=== PATIENT | female | born 1945 | race Caucasian/White ===

== ENCOUNTER 2019-09-30 08:00 | Outpatient (RCR) | payer MEDICARE, OTHER ==
[~2019-09-30 08:00] MED LIST: CO Q-10 PO; COCONUT OIL PO; CRESTOR10 MG PO; D3 PO; FLAX SEED OIL1000 MG PO; GLUCOSAMINE CH1 EAC2 PO; LEVOTHYROXINE PO; LOSARTAN/HCT PO; MAGNESIUM PO; METFORMIN HCL500 MG PO; OMEGA FISH OIL PO; OMEPRAZOLE40 MG PO; POTASSIUM GLUC PO; VITAMIN B-12 PO; VITAMIN E PO
== END 2019-10-01 ==
LOC: PT 08:00
PROVIDERS: ATTEND Specialist
DX: M75.41 Impingement syndrome of right shoulder (principal)

== ENCOUNTER 2019-12-19 07:58 | Outpatient (RCR) | payer MEDICARE | END 2019-12-31 | LOC: PT 07:58 | PROVIDERS: ATTEND Specialist | DX: M75.41 Impingement syndrome of right shoulder (principal); M62.81 Muscle weakness (generalized); M25.511 Pain in right shoulder; M54.2 Cervicalgia | CPT/HCPCS: 97139 ==

== ENCOUNTER 2023-01-27 11:47 | Outpatient (RCR) | payer MEDICARE | END 2023-01-30 | LOC: OT 11:47 | PROVIDERS: ATTEND Specialist | DX: S42.222A 2-part displaced fracture of surgical neck of left humerus, initial encounter for closed fracture (principal) ==

== ENCOUNTER 2023-02-27 09:00 | Outpatient (RCR) | payer MEDICARE | END 2023-03-01 | LOC: PT 09:00 | PROVIDERS: ATTEND Specialist | DX: S42.225A 2-part nondisplaced fracture of surgical neck of left humerus, initial encounter for closed fracture (principal); M25.512 Pain in left shoulder; M25.612 Stiffness of left shoulder, not elsewhere classified; R53.1 Weakness ==

== ENCOUNTER 2023-03-27 08:00 | Outpatient (RCR) | payer MEDICARE | END 2023-04-01 | LOC: OT 08:00 | PROVIDERS: ATTEND Specialist | DX: S42.392A Other fracture of shaft of left humerus, initial encounter for closed fracture (principal); M25.512 Pain in left shoulder; M25.612 Stiffness of left shoulder, not elsewhere classified; R53.1 Weakness ==

== ENCOUNTER 2023-04-29 09:00 | Outpatient (RCR) | payer MEDICARE | END 2023-05-01 | LOC: OT 09:00 | PROVIDERS: ATTEND Specialist | DX: S42.392A Other fracture of shaft of left humerus, initial encounter for closed fracture (principal); M25.512 Pain in left shoulder; M25.612 Stiffness of left shoulder, not elsewhere classified; R53.1 Weakness ==